=== PATIENT | male | born 1960 | race African-American/Black ===

== ENCOUNTER 2021-03-16 11:44 | Emergency (ER) | payer MEDICAID ==
[~2021-03-16] VITALS: Ht 182.9 cm; Wt 86.0 kg
[~2021-03-16 11:44] MED LIST: GLIP5TAB12 MT; METF-414 MT
[2021-03-16] MEDS ORDERED: SODIUM CHLORIDE 0.9% 1,000 ML IV ONE (12:15)
[2021-03-16] MEDS ORDERED: KETOROLAC 30MG/ML VIAL IV ONE (12:15)
[2021-03-16 15:00] LABS: BG CARBOXYHEMOGLOBIN 0.6 % (0.5-1.5); BG DEOXYHEMOGLOBIN 9.1 % (0.0-5.0); BG FRACTION INSPIRED OXYGEN 21; BG HCO3 ACT 18.3 mmol/L (22.0-26.0); BG METHEMOGLOBIN 0.3 % (0.0-1.5); BG OXYGEN SATURATION 90.8 % (92.0-98.5); BG PCO2 23.3 mmHg (35.0-45.0); BG PH 7.513 (7.350-7.450); BG PO2 56.1 mmHg (75.0-100.0); BG SAMPLE SITE RIGHT RADIAL; BG TOTAL HEMOGLOBIN 12.4 g/dL (12.0-18.0); BG VENT MODE ROOM AIR
[2021-03-16] MEDS ORDERED: AZITHROMYCIN 500MG/250ML 250 ML IV ONE (15:00)
[2021-03-16] MEDS ORDERED: CEFTRIAXONE 1 G PREMIX 50 ML IV ONE (15:00)
[2021-03-16] MEDS ORDERED: SODIUM CHLORIDE 0.9% 1000ML BAG (SEPSIS BOLUS) IV ONE (15:45)
[2021-03-16 15:52] LABS: HEMATOCRIT. 37.9 % (42.0-52.0); HEMOGLOBIN. 12.4 g/dL (14.0-18.0); MEAN CORPUSCULAR HEMOGLOBIN 27.5 pg (28.0-32.0); MEAN CORPUSCULAR VOLUME 84.3 fL (80.0-94.0); MEAN PLATELET VOLUME 8.4 fl (7.4-10.4); PLATELET 270 x1000/uL (130-400); RED BLOOD CELL COUNT 4.49 mill/uL (4.7-6.1); RED CELL DISTRIBUTION WIDTH 14.1 % (11.6-14.6)
[2021-03-16 16:25] LABS: CHLORIDE 110 mEq/L (98-107)
[2021-03-16 16:30] LABS: ETHANOL BLOOD < 10 mg/dL
[2021-03-16 16:34] LABS: CREATINE KINASE 106 IU/L (39-308)
[2021-03-16 16:39] LABS: PLATELET ESTIMATE NORMAL
[2021-03-16] MEDS ORDERED: DEXAMETHASONE 10 MG/ML VIAL IV ONE (17:00)
[2021-03-16 18:12] VITALS: BP 148/66
== END 2021-03-16 18:54 | disposition short-term general hospital (02) ==
LOC: ER 11:53 → CANBEDREQ 18:48 → ER 18:54
DX: J96.91 Respiratory failure, unspecified with hypoxia (principal); J18.9 Pneumonia, unspecified organism; Z20.822 Contact with and (suspected) exposure to COVID-19; I11.0 Hypertensive heart disease with heart failure; I50.9 Heart failure, unspecified
CPT/HCPCS: 36415; 36600; 71045; 80053; 80307; 80320; 80329; 82375; 82550; 82728; 82805; 83605; 83690; 83880; 84145; 84484; 85025; 86140; 87040; 87426; 93005; 96365; 96368; 96375; 99291; J0456; J0696; J1100; J1885; J7030; G0480

== ENCOUNTER 2021-03-28 17:50 | Inpatient (IN) | payer MEDICAID, OTHER ==
[~2021-03-28] VITALS: Ht 180.3 cm; Wt 96.7 kg
[2021-03-28] MEDS ORDERED: SODIUM CHLORIDE 0.9% 1000ML BAG (SEPSIS BOLUS) IV ONE (18:30)
[2021-03-28] MEDS ORDERED: MORPHINE SULFATE 4 MG/ML CPJ (NOT FOR IM USE) IV ONE (19:00)
[2021-03-28 19:08] LABS: HEMOGLOBIN. 11.9 g/dL (14.0-18.0); MEAN CORPUSCULAR HEMOGLOBIN 26.4 pg (28.0-32.0); MEAN CORPUSCULAR VOLUME 84.1 fL (80.0-94.0); RED BLOOD CELL COUNT 4.52 mill/uL (4.7-6.1); RED CELL DISTRIBUTION WIDTH 14.9 % (11.6-14.6)
[2021-03-28 19:16] LABS: CHLORIDE 107 mEq/L (98-107)
[2021-03-28] MEDS ORDERED: CEFTRIAXONE 1 G PREMIX 50 ML IV ONE (20:30)
[2021-03-28] MEDS ORDERED: AZITHROMYCIN 500MG/250ML 250 ML IV ONE (20:30)
[2021-03-28 20:33] LABS: CLARITY URINE CLEAR (CLEAR); COLOR URINE DARK YELLOW (YELLOW); KETONES URINE TRACE (NEGATIVE); LEUKOCYTE ESTERASE URINE NEGATIVE (NEGATIVE); NITRITE URINE NEGATIVE (NEGATIVE); OCCULT BLOOD URINE TRACE (NEGATIVE); PROTEIN URINE 2+ (NEGATIVE); SPECIFIC GRAVITY URINE 1.041 (1.005-1.030)
[2021-03-28 20:50] LABS: NUCLEATED RED BLOOD CELLS 1 /100 WBC
[2021-03-28 20:52] LABS: PLATELET 189 x1000/uL (130-400)
[2021-03-28] MEDS ORDERED: INSULIN LISPRO 100 UNITS/ML SUBCUT NR (23:16)
[2021-03-28] MEDS ORDERED: INSULIN LISPRO (HUMALOG) 300UNITS/3ML VIAL SUBCUT NR (23:30)
[2021-03-29] VITALS (12 sets, daily range): BP systolic 141–169; BP diastolic 76–112
[2021-03-29] MEDS ORDERED: ACETAMINOPHEN 325MG TABLET PO PRN (02:00)
[2021-03-29] MEDS ORDERED: NON FORMULARY PATIENT HOME MED XX SCH (02:00)
[2021-03-29] MEDS: METHYLPREDNISOLONE SOD SUCC 40 MG/ML VIAL IV SCH ×3 (03:39→22:48)
[2021-03-29] MEDS ORDERED: PNEUMOCOCCAL 23-VAL P-SAC VAC 0.5 ML IM ONE (07:30)
[2021-03-29] MEDS: ENOXAPARIN 40MG/0.4ML SYR SUBCUT SCH (08:36)
[2021-03-29] MEDS: FAMOTIDINE 20MG TABLET PO SCH ×2 (08:36→18:14)
[2021-03-29] MEDS ORDERED: CEFTRIAXONE 1 G PREMIX 50 ML IV SCH (09:00)
[2021-03-29 09:05] LABS: HEMATOCRIT. 33.3 % (42.0-52.0); HEMOGLOBIN. 10.6 g/dL (14.0-18.0); MEAN CORPUSCULAR HEMOGLOBIN 25.6 pg (28.0-32.0); MEAN CORPUSCULAR VOLUME 80.3 fL (80.0-94.0); MEAN PLATELET VOLUME 8.5 fl (7.4-10.4); PLATELET 143 x1000/uL (130-400); RED BLOOD CELL COUNT 4.15 mill/uL (4.7-6.1); RED CELL DISTRIBUTION WIDTH 14.7 % (11.6-14.6)
[2021-03-29 09:12] LABS: CHLORIDE 112 mEq/L (98-107)
[2021-03-29] MEDS: ASPIRIN 81MG TABLET PO SCH (09:52)
[2021-03-29] MEDS: BLOOD SUGAR DIAGNOSTIC STRIP TEST SCH ×4 (09:53→21:00)
[2021-03-29] MEDS: INSULIN LISPRO 100 UNITS/ML SUBCUT SCH ×4 (09:53→21:00)
[2021-03-29] MEDS ORDERED: INFLUENZA VACCINE 05/PF 0.5 ML SYRINGE IM ONE (10:00)
[2021-03-29] MEDS: AMLODIPINE 10MG TABLET PO SCH (10:19)
[2021-03-29] MEDS: INSULIN GLARGINE UD 100 UNITS/ML SYR SUBCUT SCH ×2 (10:20→23:06)
[2021-03-29 13:40] LABS: PLATELET ESTIMATE NORMAL
[2021-03-29 15:02] LABS: *AMPHETAMINES SCREEN URINE NEGATIVE (NEGATIVE); *BARBITURATES SCREEN URINE NEGATIVE (NEGATIVE); *BENZODIAZEPINES SCREEN URINE NEGATIVE (NEGATIVE); *COCAINE SCREEN URINE NEGATIVE (NEGATIVE); METHADONE URINE SCREEN NEGATIVE (NEGATIVE); OPIATES URINE SCREEN PRESUMTIVE POSITIVE (NEGATIVE)
[2021-03-29 15:03] LABS: CANNABINOID URINE SCREEN NEGATIVE (NEGATIVE); PHENCYCLIDINE URINE SCREEN NEGATIVE (NEGATIVE)
[2021-03-29] MEDS: IPRATROPIUM/ALBUTEROL 0.5-3(2.5)MG/3ML NEB HHN SCH ×2 (15:54→22:00)
[2021-03-29] MEDS ORDERED: CLONIDINE 0.2MG TABLET PO NR (20:15)
[2021-03-29] MEDS ORDERED: CLONIDINE 0.1MG TABLET PO PRN (20:15)
[2021-03-29] MEDS: BUDESONIDE 0.5MG/2ML NEB HHN SCH (22:00)
[2021-03-29] MEDS: AZITHROMYCIN 500 MG in DEXT 5% WATER 250 ML IV SCH (22:44)
[2021-03-29] MEDS: CEFTRIAXONE 1,000 MG in DEXTROSE 5% WATER 50 ML IV SCH (22:46)
[2021-03-29] MEDS ORDERED: INSULIN LISPRO 100 UNITS/ML SUBCUT NR (23:30)
[2021-03-30] VITALS (12 sets, daily range): BP systolic 117–169; BP diastolic 71–97
[2021-03-30] MEDS: IPRATROPIUM/ALBUTEROL 0.5-3(2.5)MG/3ML NEB HHN SCH ×6 (01:05→20:15)
[2021-03-30] MEDS: METHYLPREDNISOLONE SOD SUCC 40 MG/ML VIAL IV SCH ×3 (06:12→21:40)
[2021-03-30] MEDS: BLOOD SUGAR DIAGNOSTIC STRIP TEST SCH ×4 (06:34→21:35)
[2021-03-30] MEDS: INSULIN LISPRO 100 UNITS/ML SUBCUT SCH ×4 (06:36→21:44)
[2021-03-30 06:43] LABS: HEMATOCRIT. 30.3 % (42.0-52.0); HEMOGLOBIN. 9.9 g/dL (14.0-18.0); MEAN CORPUSCULAR HEMOGLOBIN 26.4 pg (28.0-32.0); MEAN CORPUSCULAR VOLUME 80.5 fL (80.0-94.0); MEAN PLATELET VOLUME 8.7 fl (7.4-10.4); PLATELET 137 x1000/uL (130-400); RED BLOOD CELL COUNT 3.76 mill/uL (4.7-6.1); RED CELL DISTRIBUTION WIDTH 14.8 % (11.6-14.6)
[2021-03-30] MEDS: BUDESONIDE 0.5MG/2ML NEB HHN SCH ×2 (08:25→20:16)
[2021-03-30] MEDS: ASPIRIN 81MG TABLET PO SCH (09:12)
[2021-03-30] MEDS: AMLODIPINE 10MG TABLET PO SCH (09:13)
[2021-03-30] MEDS: FAMOTIDINE 20MG TABLET PO SCH ×2 (09:13→17:50)
[2021-03-30] MEDS: ENOXAPARIN 40MG/0.4ML SYR SUBCUT SCH (09:13)
[2021-03-30] MEDS: INSULIN GLARGINE UD 100 UNITS/ML SYR SUBCUT SCH ×2 (09:16→21:44)
[2021-03-30 14:11] LABS: PLATELET ESTIMATE NORMAL
[2021-03-30] MEDS: CEFTRIAXONE 1,000 MG in DEXTROSE 5% WATER 50 ML IV SCH (20:34)
[2021-03-30] MEDS: AZITHROMYCIN 500 MG in DEXT 5% WATER 250 ML IV SCH (21:35)
[2021-03-30] MEDS: LORAZEPAM 2MG/ML CPJ IV PRN (21:35)
[2021-03-31] VITALS: BP 118/85
[2021-03-31] MEDS: IPRATROPIUM/ALBUTEROL 0.5-3(2.5)MG/3ML NEB HHN SCH ×6 (00:17→19:58)
[2021-03-31 04:00] VITALS: BP 131/84
[2021-03-31 05:20] LABS: BG BASE EXCESS -2.3 mmol/L (-2.0-2.0); BG CARBOXYHEMOGLOBIN 0.3 % (0.5-1.5); BG DEOXYHEMOGLOBIN 11.9 % (0.0-5.0); BG HCO3 ACT 20.6 mmol/L (22.0-26.0); BG METHEMOGLOBIN 0.3 % (0.0-1.5); BG OXYHEMOGLOBIN 87.5 % (94.0-97.0); BG PCO2 29.7 mmHg (35.0-45.0); BG PH 7.459 (7.350-7.450); BG PO2 53.2 mmHg (75.0-100.0); BG SAMPLE SITE RIGHT RADIAL; BG TOTAL HEMOGLOBIN 12.1 g/dL (12.0-18.0)
[2021-03-31] MEDS: METHYLPREDNISOLONE SOD SUCC 40 MG/ML VIAL IV SCH ×3 (06:27→22:15)
[2021-03-31] MEDS: LORAZEPAM 2MG/ML CPJ IV PRN ×2 (06:46→23:09)
[2021-03-31] MEDS: BUDESONIDE 0.5MG/2ML NEB HHN SCH ×2 (07:19→19:59)
[2021-03-31] MEDS ORDERED: BUDESONIDE 0.5MG/2ML NEB ONE (07:28)
[2021-03-31] MEDS: BLOOD SUGAR DIAGNOSTIC STRIP TEST SCH ×4 (07:30→20:34)
[2021-03-31 08:00] VITALS: BP 157/98
[2021-03-31] MEDS: INSULIN LISPRO 100 UNITS/ML SUBCUT SCH ×4 (08:00→20:34)
[2021-03-31] MEDS: ENOXAPARIN 40MG/0.4ML SYR SUBCUT SCH (08:15)
[2021-03-31] MEDS: ASPIRIN 81MG TABLET PO SCH (08:25)
[2021-03-31] MEDS: FAMOTIDINE 20MG TABLET PO SCH ×2 (08:25→17:51)
[2021-03-31] MEDS: AMLODIPINE 10MG TABLET PO SCH (08:26)
[2021-03-31] MEDS: INSULIN GLARGINE UD 100 UNITS/ML SYR SUBCUT SCH ×3 (10:00→23:09)
[2021-03-31 12:00] VITALS: BP 136/85
[2021-03-31 16:00] VITALS: BP 160/99
[2021-03-31] MEDS: CEFTRIAXONE 1,000 MG in DEXTROSE 5% WATER 50 ML IV SCH (19:54)
[2021-03-31 20:00] VITALS: BP 151/100
[2021-03-31] MEDS: AZITHROMYCIN 500 MG in DEXT 5% WATER 250 ML IV SCH (20:33)
[2021-04-01] VITALS (9 sets, daily range): BP systolic 138–159; BP diastolic 85–115
[2021-04-01] MEDS: IPRATROPIUM/ALBUTEROL 0.5-3(2.5)MG/3ML NEB HHN SCH ×6 (00:21→21:20)
[2021-04-01] MEDS: METHYLPREDNISOLONE SOD SUCC 40 MG/ML VIAL IV SCH ×3 (05:25→22:11)
[2021-04-01] MEDS: LORAZEPAM 2MG/ML CPJ IV PRN ×3 (05:26→23:35)
[2021-04-01] MEDS: BLOOD SUGAR DIAGNOSTIC STRIP TEST SCH ×4 (07:30→21:00)
[2021-04-01] MEDS: INSULIN LISPRO 100 UNITS/ML SUBCUT SCH ×4 (08:00→21:00)
[2021-04-01] MEDS: BUDESONIDE 0.5MG/2ML NEB HHN SCH (08:12)
[2021-04-01] MEDS: DEXTROSE 50% WATER 50ML SYRINGE IV PRN ×3 (08:35→17:39)
[2021-04-01] MEDS: ENOXAPARIN 40MG/0.4ML SYR SUBCUT SCH (09:31)
[2021-04-01] MEDS: AMLODIPINE 10MG TABLET PO SCH (09:32)
[2021-04-01] MEDS: INSULIN GLARGINE UD 100 UNITS/ML SYR SUBCUT SCH (09:32)
[2021-04-01] MEDS: ASPIRIN 81MG TABLET PO SCH (09:32)
[2021-04-01] MEDS: FAMOTIDINE 20MG TABLET PO SCH ×2 (09:32→17:39)
[2021-04-01] MEDS: DEXT 5%/0.45% NACL 1000ML 1,000 ML IV SCH (15:41)
[2021-04-01] MEDS: CEFTRIAXONE 1,000 MG in DEXTROSE 5% WATER 50 ML IV SCH (20:16)
[2021-04-01] MEDS: AZITHROMYCIN 500 MG in DEXT 5% WATER 250 ML IV SCH (20:19)
[2021-04-02] VITALS: BP 142/79
[2021-04-02] MEDS: IPRATROPIUM/ALBUTEROL 0.5-3(2.5)MG/3ML NEB HHN SCH ×2 (00:44→04:28)
[2021-04-02 02:00] VITALS: BP 139/65
[2021-04-02 04:00] VITALS: BP 142/67
[2021-04-02] MEDS: METHYLPREDNISOLONE SOD SUCC 40 MG/ML VIAL IV SCH (05:06)
[2021-04-02] MEDS: DEXT 5%/0.45% NACL 1000ML 1,000 ML IV SCH (05:09)
[2021-04-02 05:30] VITALS: BP 159/68
[2021-04-02 05:53] LABS: BG BASE EXCESS -3.8 mmol/L (-2.0-2.0); BG CARBOXYHEMOGLOBIN 0.6 % (0.5-1.5); BG DEOXYHEMOGLOBIN 22.5 % (0.0-5.0); BG FRACTION INSPIRED OXYGEN 80; BG HCO3 ACT 21.4 mmol/L (22.0-26.0); BG METHEMOGLOBIN 0.2 % (0.0-1.5); BG OXYGEN SATURATION 77.3 % (92.0-98.5); BG OXYHEMOGLOBIN 76.7 % (94.0-97.0); BG PCO2 39.5 mmHg (35.0-45.0); BG PH 7.352 (7.350-7.450); BG SAMPLE SITE RIGHT RADIAL; BG TOTAL HEMOGLOBIN 12.6 g/dL (12.0-18.0); BG VENT MODE MASK - BIPAP
[2021-04-02 06:26] VITALS: BP 110/66
[2021-04-02] MEDS ORDERED: FENTANYL CITRATE/PF 2,500 MCG in SODIUM CHLORIDE 0.9% 200 ML IV PRN (06:45)
[2021-04-02] MEDS ORDERED: MIDAZOLAM HCL 100 MG in SODIUM CHLORIDE 0.9% 80 ML IV PRN (06:45)
== END 2021-04-02 07:07 | DRG 133 ==
LOC: ER 17:50 → 5EST 20:50 → EDBEDREQTM 20:51 → EDBEDREQ 20:51 → EDBEDREQSVC 20:51 → ENRESERV 22:24 → CVICU 04-02 06:30
PROVIDERS: ADMIT Internal Medicine; ATTEND Internal Medicine
PROC: 5A09457 Assistance with Respiratory Ventilation, 24-96 Consecutive Hours, Continuous Positive Airway Pressure (ICD-10-PCS; 2021-03-31)
PROC: 0BH17EZ Insertion of Endotracheal Airway into Trachea, Via Natural or Artificial Opening (ICD-10-PCS; principal; 2021-04-02)
PROC: 5A1935Z Respiratory Ventilation, Less than 24 Consecutive Hours (ICD-10-PCS; 2021-04-02)
PROC: 5A12012 Performance of Cardiac Output, Single, Manual (ICD-10-PCS; 2021-04-02)
DX: J96.01 Acute respiratory failure with hypoxia (principal); E43 Unspecified severe protein-calorie malnutrition; J18.9 Pneumonia, unspecified organism; E11.649 Type 2 diabetes mellitus with hypoglycemia without coma; R65.10 Systemic inflammatory response syndrome (SIRS) of non-infectious origin without acute organ dysfunction; J44.0 Chronic obstructive pulmonary disease with (acute) lower respiratory infection; E11.65 Type 2 diabetes mellitus with hyperglycemia; D50.9 Iron deficiency anemia, unspecified; R00.1 Bradycardia, unspecified; I10 Essential (primary) hypertension; F17.210 Nicotine dependence, cigarettes, uncomplicated; R74.01 Elevation of levels of liver transaminase levels; Z20.822 Contact with and (suspected) exposure to COVID-19; Z68.29 Body mass index [BMI] 29.0-29.9, adult; Z87.01 Personal history of pneumonia (recurrent)
CPT/HCPCS: 31500; 36415; 36600; 71045; 80048; 80053; 80305; 81003; 82375; 82805; 82962; 83036; 83605; 84145; 84484; 85025; 87426; 93005; 93306; 94002; 94640; 94660; 99291; J0456; J0696; J1650; J1815; J2060; J2270; J2920; J7030; J7040; J7060; J7626